=== PATIENT | male | born 1965 | race African-American/Black ===

== ENCOUNTER 2016-07-20 03:20 | Emergency (ER) | payer OTHER ==
[~2016-07-20] VITALS: Ht 172.7 cm; Wt 94.8 kg
[2016-07-20 03:23] VITALS: BP 198/112; PULSE 83; TEMP 36.9; O2SAT 98; Ht 172.7 cm; Wt 94.8 kg
[2016-07-20] MEDS ORDERED: PENI-82 PO (03:40)
[2016-07-20] MEDS ORDERED: OXYCODONE IR HOME PACK PO ONE (03:45)
[2016-07-20] MEDS ORDERED: PENICILLIN HOME PACK 500MG (4 DOSES)BTL PO ONE (03:45)
--- NOTE | 2016-07-20 21:20 | EMERGENCY ROOM VISIT NOTE ---
ED Visit Note First contact with patient: 03:26 CHIEF COMPLAINT: Toothache HISTORY OF PRESENT ILLNESS: This 50-year-old black male patient presented to the emergency department with a progressive toothache for past 2 days. The patient believes it is coming from a right lower molar. The pain is now steady and severe and radiates to the face. The patient does not have a dentist appointment set up because he lives in [place]. 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 He is not heading home this week, and is currently staying in a hotel. They rate their pain a 10/ 10 and the ibuprofen and Tylenol they have been taking has not relieved the pain. Denies facial swelling or fever. The patient denies any discharge from the mouth. REVIEW OF SYSTEMS: A 6 system review of systems was completed with positives and pertinent negatives listed in the HPI. ALLERGIES: No known allergies MEDICATIONS: No chronic medications PMH: Hypertension SOCIAL HISTORY: Employed PHYSICAL EXAM: Vitals are noted on the nurse's note and reviewed by myself. Vital signs stable. GENERAL: Black male, in no acute distress, nondiaphoretic, well-developed well- nourished. Mouth: The right lower wisdom tooth (#32 tooth) is very decayed and carious and the gum is swollen and tender around it, without any discharge or signs of an abscess. The remainder of the pharynx and tonsils are without erythema, edema, or exudate. The airway is patent. There is no facial swelling, cervical or submandibular lymphadenopathy. The patient appears uncomfortable and in pain. The patient has overall poor dental hygiene. EARS: External auditory canals clear, tympanic membranes pearly gregory without erythema or effusion bilaterally. HEART: Regular rate and rhythm without murmur gallop or rub LUNG: Clear to auscultation bilateral ED COURSE: Physical exam and history were performed. Nursing notes and EMR were reviewed. The patient has very poor dentition and [place]. He has a very decayed wisdom tooth on the lower right that appears with signs of infection. There is no abscess or evidence of Teofilo's. The patient will be given a home pack of oxycodone and pen VK. He'll be given a continuation prescription of Pen-Vee K. He needs to follow with a dentist/ oral surgeon as soon as reasonably possible for definitive care. He was otherwise invited back to the ER with any new, worsening, or concerning symptoms. Current/Historical Medications Scheduled Penicillin V Potassium (Veetids), 500 MG PO QID Allergies Coded Allergies: No Known Allergies (Unverified , 07/20/16) Vital Signs Date Time Temp Pulse Resp B/P Pulse Ox O2 Delivery O2 Flow Rate FiO2 07/20/16 03:23 36.9 83 16 198/112 98 Room Air Medications Administered Medications (Trade) Dose Ordered Sig/Tejinder Route Start Time Stop Time Status Last Admin Dose Admin Penicillin V Potassium (Pen-Vk 500MG Home Pack) 1 homepack UD ONCE PO 07/20/16 03:45 07/20/16 03:46 DC 07/20/16 03:48 1 HOMEPACK Oxycodone HCl (Roxicodone Immediate Rel 5MG Home Pack) 1 homepack UD ONCE PO 07/20/16 03:45 07/20/16 03:46 DC 07/20/16 03:48 1 HOMEPACK Departure Information Impression Primary Impression: Pain, dental Dispostion Home / Self-Care Condition GOOD Prescriptions Penicillin V Potassium (Veetids) 500 Mg Tab 500 MG PO QID, #40 TAB Prov: Sergey Parham PA-C 07/20/16 Forms HOME CARE DOCUMENTATION FORM, IMPORTANT VISIT INFORMATION Patient Instructions My [facility] Additional Instructions You were seen and evaluated today on an emergency basis only. This is not a substitute for, or an effort to provide, complete comprehensive medical care. It is not possible to recognize and treat all injuries or illnesses in a single emergency department visit. For this reason it is recommended that you followup with a dentist as soon as possible for definitive care. Please try to contact one tomorrow and schedule an appointment. For baseline pain relief you may alternate ibuprofen and acetaminophen every 4 hours for pain control. Take 600 mg ibuprofen (Advil) and then 4 hours later take 1000 mg acetaminophen (Tylenol). Do not take more than 3000 mg acetaminophen in a single day. Oxycodone (OxyIR) 5mg (homepack): Take ONE pill every SIX hours for breakthrough pain. Avoid alcohol, operating machinery or dangerous equipment, working on ladders or roofs, DRIVING, or situations where being under the influence may be dangerous. It is recommended to use an [id number] stool softener such as Colace, 100mg twice daily while taking this medication to avoid constipation. Take Pen-Vee K 500 mg 4 times daily for the next 10 days. You are welcome to return to the emergency department anytime with new, worsening, or concerning symptoms.
== END 2016-07-20 03:50 | disposition home or self-care (01) ==
LOC: C.EDB 03:22 → C.EDA 03:50
DX: K08.89 Other specified disorders of teeth and supporting structures (principal)